=== PATIENT | male | born 2000 | race Caucasian/White ===

== ENCOUNTER 2019-11-23 06:33 | Emergency (ER) | payer MEDICAID ==
[~2019-11-23] VITALS: Ht 180.3 cm; Wt 100.0 kg
[~2019-11-23 06:33] MED LIST: RISP0.5T38 PO
[2019-11-23 06:34] VITALS: BP 127/78
[2019-11-23] MEDS ORDERED: acetaminophen 325mg tablet PO ONE (07:00)
== END 2019-11-23 07:54 | disposition home or self-care (01) ==
LOC: ER 06:33
DX: M79.675 Pain in left toe(s) (principal); F84.0 Autistic disorder; J45.909 Unspecified asthma, uncomplicated; Z79.899 Other long term (current) drug therapy
CPT/HCPCS: 99282

== ENCOUNTER 2022-07-14 08:45 | Emergency (ER) | payer MEDICAID ==
[~2022-07-14] VITALS: Ht 180.3 cm; Wt 118.2 kg
[2022-07-14 09:07] VITALS: BP 144/97
== END 2022-07-14 11:55 | disposition home or self-care (01) ==
LOC: ER 08:45
DX: S93.401A Sprain of unspecified ligament of right ankle, initial encounter (principal); W19.XXXA Unspecified fall, initial encounter; Y93.89 Activity, other specified; Y92.89 Other specified places as the place of occurrence of the external cause; Y99.8 Other external cause status
CPT/HCPCS: 73610; 99283

== ENCOUNTER 2022-07-21 11:27 | Emergency (ER) | payer MEDICAID ==
[~2022-07-21] VITALS: Ht 180.3 cm; Wt 118.2 kg
[2022-07-21 11:45] VITALS: BP 148/91
== END 2022-07-21 16:13 | disposition home or self-care (01) ==
LOC: ER 11:27
DX: M25.571 Pain in right ankle and joints of right foot (principal); J45.909 Unspecified asthma, uncomplicated; Z79.899 Other long term (current) drug therapy
CPT/HCPCS: 99281